=== PATIENT | male | born 2000 | race Caucasian/White ===

== ENCOUNTER 2023-10-23 11:56 | Emergency (ER) | payer OTHER, SELFPAY ==
[2023-10-23 11:58] VITALS: BP 185/94
[2023-10-23 12:08] VITALS: BMI 34.5
--- NOTE | 2023-10-23 12:40 | ED.GENMED ---
History of Present Illness
<Jace Orantes DO - Last Filed: 10/23/23 13:06>
General
Chief Complaint: Headache
Time Seen by Provider: 10/23/23 12:21
<Izabela Gonzalez PA-C - Last Filed: 10/23/23 18:34>
General
Source: patient
Exam Limitations: none
Nursing documentation reviewed up to this point in time: agreed with
Travel History
Have you had any contact with someone who has COVID-19?: No
Do you have any symptoms of coronavirus? Fever > 100 degrees, chills, cough, shortness of breath, sore throat, loss of taste or smell, muscle aches, or headache?: No
History of Present Illness
History of Present Illness:
This is a 23-year-old male with past medical history of IBS who is presenting to the emergency department today with headache, neck stiffness x 2 days. He states that when it started, he first thought it was a typical headache that would resolve on
its own. He states that however it started to persist and be accompanied with neck stiffness. He also admits to coughing up sputum, sore throat, diarrhea. Also admits to generalized feeling of fatigue. Patient states that he presented to his
family doctor today who sent him to the emergency department due to possible workup of meningitis. Patient denies fevers or chills. Denies abdominal pain. He does note that he had an episode of bilateral flank pain yesterday but only lasted a few
minutes and quickly resolved. He also states that his urine has been darker which she attributes to dehydration. He denies nausea or vomiting, syncopal episodes, confusion, dizziness, changes to his vision. He does not smoke tobacco or use
alcohol.
<Izabela Gonzalez PA-C - Last Filed: 10/23/23 18:34>
Past History
ED Past Medical History: Asthma
Social History
Tobacco: Non-smoker
Alcohol: None
Living: with family
Employment: Employed
Family History
Family History: Other (Noncontributory)
<Izabela Gonzalez PA-C - Last Filed: 10/23/23 18:34>
Review of Systems
All Other Systems: ROS reviewed and negative except as documented in HPI and ROS
<Izabela Gonzalez PA-C - Last Filed: 10/23/23 18:34>
Physical Exam
Physical Exam:
General: Patient appears well and is no acute distress
Skin: Warm and dry, no rashes or lesions
Head: Normocephalic, atraumatic
Eyes: No conjunctival injection
Throat: No pharyngeal erythema. Bilateral posterior cervical lymphadenopathty.
Cardiac: Regular rate and rhythm, no murmur
Pulm: Normal respiratory effort, no wheezes rales or rhonchi.
Abdomen: no abdominal tenderness
Neuro: AAOx3. No meningeal signs. CN II-XII intact.
Course
<Jace Orantes, DO - Last Filed: 10/23/23 13:06>
Orders/Labs/Results
Orders:
Orders
10/23/23 12:20
CMP [Comprehensive Metabolic Panel] Urgent
Complete Blood Count/With Diff Urgent
INF RAPID [Influenza A+B Rapid Molecular] Urgent
CHASE Source: Nasal Swab
Specimen Description:
10/23/23 13:00
0.9% Sodium Chloride 500 ml [Nss] 500 ml IV BOLUS
Ketorolac [Toradol] 15 mg IV NOW STA
CR Chest - 2 Views Urgent
Comment:
Reason For Exam: cough
10/23/23 13:17
Monotest Urgent
Rapid Strep Group A Urgent
CHASE Source: Throat/Pharynx
Specimen Description:
Date Specimen was Collected: 10/23/23
Time Specimen was Collected: 13:03
10/23/23 14:14
Urinalysis Reflex To Culture Urgent
Date Specimen was Collected: 10/23/23
Time Specimen was Collected: 14:08
Urine Microscopic Reflex Cult Urgent
10/23/23 14:51
CT Chest Pe Study Urgent
Comment:
Reason For Exam: hemoptysis, tachycardia, anterior neck pain
CT Neck With Iv Contrast Urgent
Comment:
Reason For Exam: anterior neck pain
Abnormal Lab Results
10/23/23 10/23/23
12:20 14:14
WBC 18.1 H 10^3/uL
(4.8-10.8)
Abs Immat Gran (auto) 0.1 H 10^3/uL
(0-0.05)
Absolute Neuts (auto) 14.1 H 10^3/uL
(1.4-6.5)
Absolute Monos (auto) 1.9 H 10^3/uL
(0.1-0.6)
Neutrophils % 77.7 H %
(42.2-75.2)
Lymphocytes % 11.3 L %
(20.5-51.1)
Monocytes % 10.3 H %
(1.7-9.3)
Glucose 136 H mg/dl
(70-99)
Leukocyte Esterase Rfl Trace A
(Negative)
10/23/23 12:20
10/23/23 12:20
Vital Signs
Initial and Last Documented VS:
Initial Vital Signs
Temp Pulse Resp BP Pulse Ox
98.2 F 113 18 185/94 98
10/23/23 11:58 10/23/23 11:58 10/23/23 11:58 10/23/23 11:58 10/23/23 11:58
Last Documented Vital Signs
Temp Pulse Resp BP Pulse Ox
98.4 F 84 18 131/76 100
10/23/23 12:01 10/23/23 17:50 10/23/23 17:50 10/23/23 17:50 10/23/23 17:50
<Izabela Gonzalez PA-C - Last Filed: 10/23/23 18:34>
Orders/Labs/Results
Orders:
Orders
10/23/23 12:20
CMP [Comprehensive Metabolic Panel] Urgent
Complete Blood Count/With Diff Urgent
INF RAPID [Influenza A+B Rapid Molecular] Urgent
CHASE Source: Nasal Swab
Specimen Description:
10/23/23 13:00
0.9% Sodium Chloride 500 ml [Nss] 500 ml IV BOLUS
Ketorolac [Toradol] 15 mg IV NOW STA
CR Chest - 2 Views Urgent
Comment:
Reason For Exam: cough
10/23/23 13:17
Monotest Urgent
Rapid Strep Group A Urgent
CHASE Source: Throat/Pharynx
Specimen Description:
Date Specimen was Collected: 10/23/23
Time Specimen was Collected: 13:03
10/23/23 14:14
Urinalysis Reflex To Culture Urgent
Date Specimen was Collected: 10/23/23
Time Specimen was Collected: 14:08
Urine Microscopic Reflex Cult Urgent
10/23/23 14:51
CT Chest Pe Study Urgent
Comment:
Reason For Exam: hemoptysis, tachycardia, anterior neck pain
CT Neck With Iv Contrast Urgent
Comment:
Reason For Exam: anterior neck pain
Abnormal Lab Results
10/23/23 10/23/23
12:20 14:14
WBC 18.1 H 10^3/uL
(4.8-10.8)
Abs Immat Gran (auto) 0.1 H 10^3/uL
(0-0.05)
Absolute Neuts (auto) 14.1 H 10^3/uL
(1.4-6.5)
Absolute Monos (auto) 1.9 H 10^3/uL
(0.1-0.6)
Neutrophils % 77.7 H %
(42.2-75.2)
Lymphocytes % 11.3 L %
(20.5-51.1)
Monocytes % 10.3 H %
(1.7-9.3)
Glucose 136 H mg/dl
(70-99)
Leukocyte Esterase Rfl Trace A
(Negative)
10/23/23 12:20
10/23/23 12:20
Vital Signs
Initial and Last Documented VS:
Initial Vital Signs
Temp Pulse Resp BP Pulse Ox
98.2 F 113 18 185/94 98
10/23/23 11:58 10/23/23 11:58 10/23/23 11:58 10/23/23 11:58 10/23/23 11:58
Last Documented Vital Signs
Temp Pulse Resp BP Pulse Ox
98.4 F 84 18 131/76 100
10/23/23 12:01 10/23/23 17:50 10/23/23 17:50 10/23/23 17:50 10/23/23 17:50
<Izabela Gonzalez PA-C - Last Filed: 10/23/23 18:34>
MDM/Problems Addressed
Differential Diagnosis Includes:
Differentials include upper respiratory tract infection, pulmonary embolism, nephrolithiasis, mononucleosis, UTI
MDM/Problems Addressed:
headache
neck stiffness
URI symptoms
Chronic conditions affecting care:
n/a
Acute Exacerbation and/or Progression of Chronic Illness:
n/a
<Izabela Gonzalez PA-C - Last Filed: 10/23/23 18:34>
*Critical Care Note
Total Time (30-74mins, 75-104mins- exclusive of procedures): Not Applicable
<Izabela Gonzalez PA-C - Last Filed: 10/23/23 18:34>
Patient Management
Escalation/DeEscalation of care consider admission/obs:
23-year-old male presenting today from his primary care provider's office for concerns of possible meningitis. Patient has been having a headache and neck stiffness for the past few days. Patient states that is painful when he swallows. Patient
states that he is also had general URI symptoms as well as diarrhea. Patient tested negative for COVID and his family office. Patient also complained of dark urine and resolving flank pain. On exam, he has posterior cervical lymphadenopathy as
well as tachycardia but he has no adventitious lung sounds, he is not in respiratory distress, he has no rash, no meningeal signs. Initially, he presented with hypertension and tachycardia, but while here in the ED, his heart rate keep him down on
its own after pain control with Toradol, and his blood pressure subsequently came down as well. His CBC showed leukocytosis of 18,000, and his CMP was unremarkable. His urinalysis did not show any evidence of hematuria or infection. His PE study
was negative, his CT of the neck did show bilateral cervical lymphadenopathy. Suspect his current symptoms are due to a viral illness, however he should follow-up with his family doctor ensure the resolution of his lymphadenopathy. Patient
understands plan and is stable for discharge
ED Attending Note
<Jace Orantes DO - Last Filed: 10/23/23 13:06>
ED Attending Note
Patient seen and examined by attending physician: Yes
I performed the substantive portion of visit, reviewed & personally made and approve the management plan that is documented in note by myself or MARY.: Yes
ED Attending Note:
I have seen and evaluated the patient with a [id number] encounter. I have spoken to the advance practicer provider and involved in the medical history, the physical exam, medical decision making.
Evaluation and management service: agree unless noted differently below.
Results interpretation: agree unless noted differently below.
Focused HPI: 23-year-old male presenting with neck pain and feeling unwell. He went to his PCP office today and was sent in for evaluation of possible meningitis. Patient states he has been feeling unwell for 2 days. He does complain of neck pain
but localizes the pain to the front of his neck and to the sides of his neck. Patient denies 'cervical neck pain'. 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 He complains of pain when he swallows. He also complains of mild
cough with bloody mucus. He currently denies any chest pain or shortness of breath. He was complaining of 'flank pain' and dark urine but attributed this to dehydration.
Physical exam: Sitting in bed comfortably. No meningismus. Mild posterior cervical lymphadenopathy bilaterally. Posterior pharynx erythematous but no exudate. Uvula midline. Anterior neck supple. Lungs clear. Abdomen soft and nontender
Medical Decision Making: We had a long discussion about ruling out meningitis which would involve a lumbar puncture. I did explain that 2 days of these vague symptoms without meningismus or fever is less likely bacterial meningitis. Patient
agrees. We discussed risk versus benefit of lumbar puncture. At this moment, it is shared decision making to not go forward with lumbar puncture. His symptoms are vague and likely viral. He complains of dehydration, flank pain, cough, sore
throat. Will look for source of infection and continue to reassess.
<Izabela Gonzalez PA-C - Last Filed: 10/23/23 18:34>
-
Portions of this chart may have been created with voice recognition software.� Occasional wrong word or��sound alike� substitutions may have occurred due to the inherent limitations of voice recognition software.
Discharge Plan
Departure
Patient Disposition: Home (Routine Discharge)
Date of Disposition: 10/23/23
Time of Disposition: 17:39
Patient with high blood pressure during this ER visit?: Yes
Condition: Good
Discharge Problem:
Cervical adenitis
Instructions: Lymphadenitis (DC), Neck Pain ED, BLOOD PRESSURE
Prescriptions:
No Action
No Current Medications
0
Referrals:
David Roberts, [Family Provider] -
Activity Restrictions/Additional Instructions:
Your CT scan did not show evidence of pulmonary embolism but did show multiple inflamed lymph nodes. Please follow up with your primary care provider to ensure resolution of these nodes and repeat imaging.
PLEASE RETURN TO THE EMERGENCY DEPARTMENT WITH NEW OR WORSENING SYMPTOMS.
Interventions
Interventions:
*Risk Screen - Suicide Last Done: 10/23/23 12:08
*General Assessment Last Done: 10/23/23 12:08
*Neglect/Abuse Screening Last Done: 10/23/23 12:08
ED- Fall Risk Assessment Last Done: 10/23/23 17:52
*ED COVID-19 Vaccine History Last Done: 10/23/23 12:08
*Nursing Disposition Last Done: 10/23/23 17:52
ED- Neurological Assessment Last Done: 10/23/23 12:08
Discharge Date and Time
Discharge Date/Time: 10/23/23 17:53
[2023-10-23 12:41] LABS: % Basophils 0.2 % (0-2); % Eosinophils 0.1 % (0-6); % Immature Granulocytes 0.4 % (0-0.5); % Lymphocytes 11.3 % (20.5-51.1); % Monocytes 10.3 % (1.7-9.3); % Neutrophils 77.7 % (42.2-75.2); Absolute Immature Granulocytes 0.1 10^3/uL (0-0.05); Absolute Lymphocytes 2.1 10^3/uL (1.2-3.4); Absolute Monocytes 1.9 10^3/uL (0.1-0.6); Absolute Neutrophils 14.1 10^3/uL (1.4-6.5); Hematocrit 42.8 % (39.0-52.0); Hemoglobin 15.1 g/dL (13.0-18.0); Mean Corp Hgb Conc. 35.3 g/dL (33.0-37.0); Mean Corpuscular Hgb 28.8 pg (27.0-31.0); Mean Corpuscular Volume 81.7 fL (80.0-94.0); Mean Platelet Volume 9.3 fL (7.4-10.4); Nucleated Red Blood Cells % 0 % (-); Platelet Count 268 10^3/uL (130-400); Red Blood Cell Count 5.24 10^6/uL (4.70-6.10); White Blood Cell Count 18.1 10^3/uL (4.8-10.8)
[2023-10-23 12:58] LABS: ALT (SGPT) 39 U/L (0-50); AST (SGOT) 27 U/L (17-59); Albumin 4.9 g/dl (3.5-5.0); Alkaline Phosphatase 69 U/L (38-126); Blood Urea Nitrogen 12 mg/dl (9-20); Calcium 9.9 mg/dl (8.4-10.2); Carbon Dioxide 26 mmol/L (22-30); Chloride 103 mmol/L (98-107); Estimated Creatinine Clearance > 125 ml/min; Glucose 136 mg/dl (70-99); Potassium 3.8 mmol/L (3.5-5.1); Sodium 138 mmol/L (135-145); Total Bilirubin 0.8 mg/dl (0.2-1.3); Total Protein 8.1 g/dl (6.3-8.2); eGFR > 60.00
[2023-10-23 13:20] VITALS: BP 150/85
[2023-10-23] MEDS: TORADOL 15 MG IV (13:22)
[2023-10-23] MEDS: NSS 500 IV (13:23)
[2023-10-23 13:59] LABS: Monotest Negative (Negative)
[2023-10-23 14:10] VITALS: BP 131/74
[2023-10-23 14:23] LABS: Urine Albumin Negative (Neg - Trace); Urine Bilirubin Negative (Negative); Urine Character Clear (Clear); Urine Color Yellow; Urine Glucose Negative (Negative); Urine Ketone Negative (Negative); Urine Leukocyte Trace (Negative); Urine Nitrite Negative (Negative); Urine Occult Blood Negative (Negative); Urine Urobilinogen Negative (Neg - 1+); Urine pH 6.5 (5.0-9.0)
[2023-10-23 14:40] LABS: Urine Hyaline Cast 0-2 /LPF (0-2); Urine Red Cell Cast 0-2 /LPF; Urine White Cell Cast 0-2 /LPF
[2023-10-23 14:52] LABS: Urine Red Blood Cell 0-2 /HPF (0-2); Urine White Cell 0-2 /HPF (0-5)
[2023-10-23 17:50] VITALS: BP 131/76
== END 2023-10-23 17:53 | disposition home or self-care (01) ==
LOC: EMR 11:56
PROVIDERS: Emergency Medicine; Physician Assistant; EMERGENCY PHYSICIAN Student in an Organized Health Care Education/Training Program; FAMILY PHYSICIAN Family Medicine
DX: R51.9 Headache, unspecified (principal); K58.0 Irritable bowel syndrome with diarrhea; J45.909 Unspecified asthma, uncomplicated; E86.0 Dehydration; I10 Essential (primary) hypertension; I88.9 Nonspecific lymphadenitis, unspecified; Z86.19 Personal history of other infectious and parasitic diseases
CPT/HCPCS: 99284; 96374; 96361; 70491; 71046; 71275; 80053; 81003; 81015; 85025; 86308; 87070; 87502; 87880; Q9967